=== PATIENT | male | born 1960 | race Caucasian/White ===

== ENCOUNTER 2019-09-08 07:17 | Outpatient (CLI) | payer OTHER, SELFPAY ==
--- NOTE | ~2019-09-08 | US_ITS ---
EXAMINATION: US right upper quadrant DATE: 09/08/2019 07:48 INDICATION: Right upper quadrant pain TECHNIQUE: Multiple grayscale and Doppler ultrasound images of the abdomen were obtained. COMPARISON: None available FINDINGS: The head and and body of the pancreas are normal. The pancreatic tail is obscured by bowel gas. The liver is normal with normal echogenicity and echotexture. No surface nodularity. Normal hepa topetal flow in the main portal vein. The gallbladder is normal with no abnormal wall thickening, per icholecystic fluid or stones. The normal common bile duct measures 4 mm. There was no sonographic Mur phy sign. IMPRESSION: 1. Normal sonographic study of the gallbladder. Reviewed, dictated and finalized at location B.
== END 2019-09-08 07:18 | disposition home or self-care (01) ==
LOC: ANHIMG 07:21
PROVIDERS: PCP Internal Medicine; Visit Provider Nurse Practitioner
DX: R10.11 Right upper quadrant pain (principal)
CPT/HCPCS: 76705

== ENCOUNTER 2021-10-18 09:08 | Outpatient (CLI) | payer OTHER, SELFPAY ==
--- NOTE | ~2021-10-18 | CT_ITS ---
EXAMINATION: CT lung screening DATE: 10/18/2021 09:26 INDICATION: Personal history of nicotine dependence, prior smoker with 35 pack year history TECHNIQUE: Computed tomography (CT) of the chest was performed without intravenous contrast. The dose -length product (DLP) was 163.55 mGy-cm. 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 COMPARISON: None FINDINGS: There is mild emphysema. There is a 4 mm nodule of the right upper lobe on image 43. The marco ngs are free of acute opacities. There is no pleural effusion or pneumothorax. There is a 6 mm ground glass nodule of the right upper lobe on image 56. No pathologically enlarged thoracic lymph nodes are identified. The heart size is normal. Calcified coronary artery atherosclerosis is noted. There is m oderate thoracic spondylosis. IMPRESSION: 1. Lung-RADS category 2: Benign appearance or behavior. Continue annual screening with noncontrast lo w-dose chest CT in 12 months. Reviewed, dictated and finalized at location B. IMPRESSION: 1. Lung-RADS category 2: Benign appearance or behavior. Continue annual screeni ng with noncontrast low-dose chest CT in 12 months.
== END 2021-10-18 09:09 | disposition home or self-care (01) ==
LOC: ANHIMG 09:12
PROVIDERS: PCP Internal Medicine; Visit Provider Nurse Practitioner
DX: Z12.2 Encounter for screening for malignant neoplasm of respiratory organs (principal); Z87.891 Personal history of nicotine dependence
CPT/HCPCS: 71271

== ENCOUNTER 2021-10-25 01:29 | Day surgery (SDC) | payer OTHER, SELFPAY ==
[2021-10-16 16:10] VITALS: BMI 32.2
[2021-10-25 11:13] VITALS: BP 131/87; PULSE 90; RESP 20; TEMP 36.1; O2SAT 98
[2021-10-25] MEDS: LACTATED RINGERS 1,000 ML 150 ML IV CONT (11:17)
--- NOTE | 2021-10-25 11:40 | WPDANESEPPF ---
Anes - Initial Pre Proc Eval Procedure: Operation Date: 10/25/21 12:30 Proposed Procedures p Screening Colonoscopy - Gordy Barbour MD Date/Time: 10/25/21 11:40 Surgeon: Gordy Barbour MD Pre Op Diagnosis: neoplasm screening Patient Data Age: 61 Gender: M Height: 1.75 m Weight: 96.6 kg Last Vital Signs Temp 97 F L 10/25/21 11:13 Pulse 90 10/25/21 11:13 Resp 20 10/25/21 11:13 BP 131/87 10/25/21 11:13 Pulse Ox 98 10/25/21 11:13 Allergies Allergy/AdvReac Type Severity Reaction Status Date / Time levofloxacin [From Levaquin] Allergy Severe Muscle Verified 10/25/21 11:11 detachment Dog Dander Allergy Intermediate SINUS Uncoded 10/25/21 11:11 Home Medications Medication Instructions Recorded Confirmed Type cetirizine 10 mg capsule 10 mg PO DAILY 10/13/19 10/16/21 History fluticasone propionate 50 1 spray NASAL DAILY 10/13/19 10/16/21 History mcg/actuation nasal spray,suspension testosterone cypionate 200 mg/mL 200 mg IM WEEKLY #13 ml 01/19/21 10/16/21 Rx intramuscular oil albuterol sulfate 90 mcg/actuation 2 puff INHALATION Q4-6H PRN #8.5 gm 04/25/21 10/16/21 Rx aerosol inhaler bupropion HCl 100 mg tablet,12 hr 100 mg PO DAILY #30 tablet 05/22/21 10/16/21 Rx sustained-release azelastine 1 spray NASAL DAILY 10/16/21 10/16/21 History Patient hx anesthesia problems: none Family hx anesthesia problems: none Results Review: All pre-operative results and documents have been reviewed as part of the pre-operative evaluation. [facility] Past Medical History Medical History (Updated 10/05/21 @ 08:48 by Dorothy Flannery NP) Hypercholesteremia Hypogonadism in male Long-term current use of testosterone replacement therapy Neuropathy Surgical History Surgical History History of surgery on arm Left bicep reattachment 2012 Family History Family History Sibling Patient's sister is in good health Father Acute myocardial infarction Sibling No problems noted. Social History Social History Smoking packs per day: 1 Smoking cigarettes per day: 20.0 Years smoked: 40 Smoking pack-years: 40.00 Smoking status: Former smoker Tobacco type: cigarettes Smoking end date: 06/16/00 Alcohol intake: current Alcohol use details: once a month Substance use: never Substance use type: does not use Living arrangements: with family Spiritual care concerns: No Anes - Eval Final PreProcedure Day of Procedure 10/25/21 11:40 Patient weight: obese Heart: regular rate and rhythm Lungs: clear to auscultation Airway: Mallampati scale class II Neurological: alert and oriented Last oral intake: >/= 8 hours ASA classification: II Emergent: no Anesthetic plan: proceed Anesthesia type and monitoring: general GIVS and standard monitoring Results Review: All pre-operative results and documents have been reviewed as part of the pre-operative evaluation. Informed Consent: The patient's anesthetic plan and its attendant risks and benefits were discussed with the patient/family/POA. Questions were solicited and answers provided to the satisfaction of the patient/family/POA.
--- NOTE | 2021-10-25 11:42 | WPDGICN ---
Assessment and Plan Assessment and plan (1) Screening for colon cancer: Code(s): Z12.11 - Encounter for screening for malignant neoplasm of colon Status: Acute Assessment and Plan: Colonoscopy with possible biopsy or polypectomy or cautery or injection of substances. GI Consult Note Consult date/time: 10/25/21 11:42 HPI: Yohan Dunaway is a 61 year old male Who has due for colon cancer screening. He had a colonoscopy about 10 years ago. He has a history of colon polyps. Review of Systems Review of Systems: All systems reviewed & are unremarkable except as noted in HPI and below PMFSH Past Medical History Medical History Hypercholesteremia Hypogonadism in male Long-term current use of testosterone replacement therapy Neuropathy Surgical History Surgical History History of surgery on arm Left bicep reattachment 2012 Family History Family History Sibling Patient's sister is in good health Father Acute myocardial infarction Sibling No problems noted. Social History Social History Smoking packs per day: 1 Smoking cigarettes per day: 20.0 Years smoked: 40 Smoking pack-years: 40.00 Smoking status: Former smoker Tobacco type: cigarettes Smoking end date: 06/16/00 Alcohol intake: current Alcohol use details: once a month Substance use: never Substance use type: does not use Living arrangements: with family Spiritual care concerns: No Meds Home Medications and Allergies Home Medications Medication Instructions Recorded Confirmed Type cetirizine 10 mg capsule 10 mg PO DAILY 10/13/19 10/16/21 History fluticasone propionate 50 1 spray NASAL DAILY 10/13/19 10/16/21 History mcg/actuation nasal spray,suspension testosterone cypionate 200 mg/mL 200 mg IM WEEKLY #13 ml 01/19/21 10/16/21 Rx intramuscular oil albuterol sulfate 90 mcg/actuation 2 puff INHALATION Q4-6H PRN #8.5 gm 04/25/21 10/16/21 Rx aerosol inhaler bupropion HCl 100 mg tablet,12 hr 100 mg PO DAILY #30 tablet 05/22/21 10/16/21 Rx sustained-release azelastine 1 spray NASAL DAILY 10/16/21 10/16/21 History Allergies Allergy/AdvReac Type Severity Reaction Status Date / Time levofloxacin [From Levaquin] Allergy Severe Muscle Verified 10/25/21 11:11 detachment Dog Dander Allergy Intermediate SINUS Uncoded 10/25/21 11:11 Vital Signs Vital Signs - 24 hr 10/25/21 11:13 Temperature 36.1 C L Pulse Rate 90 Respiratory Rate 20 Blood Pressure 131/87 Pulse Oximetry 98 Exam Const: General: alert Orientation/consciousness: patient oriented x3 Resp: Auscultation: clear to auscultation bilaterally Cardio: Rhythm: regular rhythm GI: GI Palp: Yes Soft to palpation and No Tenderness to palpation present (GI) Neuro: General: patient oriented x3
[2021-10-25 12:38] VITALS: BP 113/65; PULSE 70; RESP 20; O2SAT 94
[2021-10-25 12:48] VITALS: BP 119/75; PULSE 69; RESP 20; O2SAT 99
== END 2021-10-25 13:05 | disposition home or self-care (01) ==
PROVIDERS: PCP Internal Medicine; Visit Provider Internal Medicine Gastroenterology
PROC: 0DJD8ZZ Inspection of Lower Intestinal Tract, Via Natural or Artificial Opening Endoscopic (ICD-10-PCS; CPT 45378; principal; 2021-10-25 12:30)
DX: Z12.11 Encounter for screening for malignant neoplasm of colon (principal); K63.5 Polyp of colon; K57.30 Diverticulosis of large intestine without perforation or abscess without bleeding; E78.00 Pure hypercholesterolemia, unspecified; G62.9 Polyneuropathy, unspecified; Z79.890 Hormone replacement therapy; Z87.891 Personal history of nicotine dependence; Z79.51 Long term (current) use of inhaled steroids; E66.9 Obesity, unspecified; Z68.31 Body mass index [BMI] 31.0-31.9, adult
CPT/HCPCS: 45380; 88305; J2704; J7120

== ENCOUNTER 2022-06-05 16:36 | Outpatient (CLI) | payer OTHER, SELFPAY ==
--- NOTE | ~2022-06-05 | XR_ITS ---
Clinical Indication: Cough PA and lateral views of the chest: Comparison: 07/21/2015 Findings: The lungs are clear, without evidence of focal consolidation or pleural effusion. Cardiome diastinal silhouette is within normal limits. Bones and soft tissues are unremarkable. Impression: Normal chest. Reviewed, dictated and finalized at [facility]. NCER SCALE Impression: Normal chest.
== END 2022-06-05 16:37 | disposition home or self-care (01) ==
LOC: ANHIMG 16:38
PROVIDERS: PCP Internal Medicine; Visit Provider Nurse Practitioner
DX: R05.9 Cough, unspecified (principal)
CPT/HCPCS: 71046

== ENCOUNTER 2022-06-13 12:03 | Observation (INO) | payer OTHER, SELFPAY ==
[2022-06-13] VITALS (9 sets, daily range): BP systolic 134–140; BP diastolic 70–75; PULSE 73–103; RESP 15–30; TEMP 37.5; O2SAT 93–97
--- NOTE | ~2022-06-13 | XR_ITS ---
EXAMINATION: XR chest 2V DATE: 06/13/2022 13:49 INDICATION: Cough and congestion TECHNIQUE: PA and lateral views of the chest are obtained. COMPARISON: 06/05/2022 FINDINGS: There are minimal airspace opacities of the lung bases, left greater than right. No pleural effusion or pneumothorax. The cardiomediastinal silhouette is normal. There is moderate thoracic spo ndylosis. IMPRESSION: 1. Minimal bibasilar airspace opacities, consistent with atelectasis versus pneumonia. Reviewed, dictated and finalized at location L. NCE ENGINEER IMPRESSION: 1. Minimal bibasilar airspace opacities, consistent with atelectasis versus pne umonia.
--- NOTE | ~2022-06-13 | CT_ITS ---
EXAMINATION: CTA chest PE protocol DATE: 06/13/2022 16:49 INDICATION: Cough and congestion. TECHNIQUE: Computed tomography angiography (CTA) of the chest was performed with 100 mL Omnipaque-350 intravenous contrast timed to evaluate the pulmonary arteries. Coronal maximum intensity projection 3D-reconstructions were created by the technologist. Automated exposure control and iterative reconst ruction technique were employed. The dose-length product was 413.37 mGy-cm. COMPARISON: Chest CT 10/18/2021 FINDINGS: There are patchy airspace and groundglass opacities in the lower lobes. There are mild grou ndglass opacities in right middle lobe and right upper lobe. No pleural effusion. The heart size is n ormal. There is a trace pericardial effusion. There is mild bilateral hilar lymphadenopathy. There is no pulmonary embolus. There is mild thoracic spondylosis. There is mild chronic anterior wedging of multiple vertebral bodies. IMPRESSION: 1. No pulmonary embolus. Sensitivity and specificity are moderately decreased by motion artifact. 2. Bilateral pneumonia, worst in the lower lobes. Reviewed, dictated and finalized at location A. ASST IMPRESSION: 1. No pulmonary embolus. Sensitivity and specificity are moderately decreased b y motion artifact. 2. Bilateral pneumonia, worst in the lower lobes.
--- NOTE | 2022-06-13 13:16 | ECG_ITS ---
Measurements Intervals [place] Rate: 82 P: 61 NE: 185 QRS: 45 QRSD: 93 T: 4 QT: 325 QTc: 380 Interpretive Statements SINUS RHYTHM NONSPECIFIC T-WAVE ABNORMALITY NO PREVIOUS ECG AVAILABLE FOR COMPARISON Electronically Signed On 06-13-2022 15:05:13 LOAN SERVICING SPECIALIST by Toni Oquendo M.D.
[2022-06-13 14:25] LABS: Basophils Absolute Auto 0.1 K/mm3 (0.0-0.1); Basophils Percent Auto 0.3 % (0.2-1.2); Eosinophils Percent Auto 0.1 % (0-4.4); Hematocrit 43.8 % (42.0-52.0); Hemoglobin 14.5 g/dL (14.0-18.0); Immature Granulocyte Absolute 0.11 K/mm3 (0.00-0.031); Immature Granulocyte Percent A 0.7 % (0-0.5); Lymphocytes Absolute Auto 1.33 K/mm3 (0.9-3.2); Lymphocytes Percent Auto 8.3 % (18.3-44.2); Mean Corpuscular HGB Conc 33.1 g/dl (32-36); Mean Corpuscular Hemoglobin 32.2 pg (26-34); Mean Corpuscular Volume 97.3 fl (80-100); Mean Platelet Volume 10.8 fl (7.4-10.4); Monocytes Absolute Auto 1.1 K/mm3 (0.1-0.6); Monocytes Percent Auto 6.6 % (2.6-8.5); Neutrophils Absolute Auto 13.5 K/mm3 (1.3-6.7); Platelet Count Result 257 k/mm3 (150-375); Red Cell Distribution Width 14.2 % (11.5-14.5); White Blood Count 16.1 K/mm3 (4.5-10.0)
[2022-06-13 14:32] LABS: Alanine Aminotransferase 29 U/L (6-50); Albumin Level 3.7 g/dL (3.5-5.1); Alkaline Phosphatase 69 U/L (38-126); Anion Gap 6 mmol/L (8-16); Aspartate Amino Transferase 24 U/L (17-59); Bilirubin,Total 1.2 mg/dL (0.2-1.3); Blood Urea Nitrogen 9 mg/dL (9-20); Calcium 8.4 mg/dL (8.4-10.2); Carbon Dioxide 28 mmol/L (22-30); Chloride 102 mmol/L (98-107); Estimated CRCL calculation 58 ml/min; Estimated Glomerular Filt Rate > 60; Glucose 107 mg/dL (65-110); Potassium 3.9 mmol/L (3.4-5.0); Sodium 136 mmol/L (137-145)
[2022-06-13 14:57] LABS: Influenza A QL RT-PCR Positive (Negative); Influenza B QL RT-PCR Negative (Negative); SARS-CoV-2 RNA PCR Negative
--- NOTE | 2022-06-13 17:05 | ED.GENADULT ---
HPI - General Adult General Chief complaint: Upper Respiratory Infection Stated complaint: URI Time Seen by Provider: 06/13/22 15:32 Source: RN notes reviewed History of Present Illness HPI narrative: Patient presents emergency department from home for upper respiratory infection. Patient states he has not been feeling well for the past 1 month. He states that he gone to see Dr. Christianson approximately 1 week ago and was diagnosed with influenza but states he is can seem to have a cough is productive yellow sputum as well as feeling generally achy he denies any measured fevers or chills or chest pain he denies any abdominal pain nausea or vomiting. She states that he had also had influenza previously earlier this year Related Data Home Medications Medication Instructions Recorded Confirmed cetirizine 10 mg capsule 10 mg PO DAILY 10/13/19 06/05/22 fluticasone propionate 50 1 spray intranasal DAILY 10/13/19 06/05/22 mcg/actuation nasal spray,suspension azelastine 137 mcg (0.1 %) nasal 1 spray intranasal DAILY 10/16/21 06/05/22 spray aerosol Allergies Allergy/AdvReac Type Severity Reaction Status Date / Time levofloxacin [From Levaquin] Allergy Severe Muscle Verified 06/13/22 15:31 detachment Dog Dander Allergy Intermediate SINUS Uncoded 06/13/22 15:31 Review of Systems Review of Systems: Gen.: Denies fevers or chills ENT: Denies congestion Respiratory: See HPI CV: Denies chest pain or palpitations GI: Denies abdominal pain nausea, emesis or diarrhea Musculoskeletal: Denies back pain or muscle pain Neuro: Denies numbness, tingling, weakness or focal weakness Skin: Denies rash Except as documented, all other systems reviewed and negative [facility] Past Medical History Medical History Hypercholesteremia Hypogonadism in male Long-term current use of testosterone replacement therapy Neuropathy Surgical History Surgical History History of surgery on arm Left bicep reattachment 2012 Family History Family History Sibling Patient's sister is in good health Father Acute myocardial infarction Sibling No problems noted. Mother Pancreatic cancer metastasized to intra-abdominal lymph node Social History Social History Smoking packs per day: 1 Smoking cigarettes per day: 20.0 Years smoked: 40 Smoking pack-years: 40.00 Smoking status: Former smoker Tobacco type: cigarettes Smoking end date: 06/16/00 Alcohol intake: current Alcohol use details: once a month Substance use: never Substance use type: does not use Spiritual care concerns: No Exam Narrative: APPEARANCE: No acute distress, nontoxic, resting in bed EYES: EOMI HEENT: Normocephalic, atraumatic, OMM RESPIRATORY: No respiratory distress coarse breath sounds in bilateral lung bases no wheezing CARDIOVASCULAR: Regular rate and rhythm without murmurs rubs or gallops. ABDOMINAL: Soft, nontender, nondistended, no rebound or guarding MUSCULOSKELETAl: Moves all extremities. No clubbing, cyanosis or edema. NEURO: Awake and alert. Following commands, speech normal, no focal deficits SKIN:: Warm, dry. No rashes lesions or abrasions PSYCHIATRIC: Normal affect/mood, Course Course Emergency Course: Discussed with KELI Mari for Dr. Horne presentation work-up agrees with admission Discussed with patient and family results of workup and diagnosis. Discussed need for admission. Patient and family understand and agree to current treatment plan Vital Signs Vital signs: Vital Signs Pulse Oximetry 93 06/13/22 12:06 Temperature 99.5 F 06/13/22 13:07 Pulse Rate 98 06/13/22 13:07 Respiratory Rate 16 06/13/22 13:07 Blood Pressure 140/73 06/13/22 13:07 Pulse Oxim
[2022-06-13] MEDS: SODIUM CHLORIDE 0.9% IV 1,000 ML 999 ML IV CONT (17:40)
[2022-06-13 17:51] LABS: Lactic Acid Reflex 0.9 mmol/L (0.7-2.0)
--- NOTE | 2022-06-13 20:55 | PM.IMHP ---
H&P: HPI History of Present Illness Date/Time: 06/13/22 20:55 Chief Complaint: Upper respiratory infection Narrative: This is a 61-year-old male patient who has been feeling ill for the last month. He came to the emergency room to be evaluated for his upper respiratory infection. The patient stated that he took several influenza test and was just diagnosed with influenza a 1 week ago. The patient stated he continues to cough productive yellow sputum and is still having body aches. He has had some fatigue as well. No nausea vomiting or diarrhea. Chest x-ray was read as minimal bibasilar airspace opacities consistent with atelectasis versus pneumonia. CTA was read as no pulmonary embolus. Sensitivity and specificity are moderately decreased by motion artifact. Bilateral pneumonia worse in the lower lobes. The patient was started on azithromycin Rocephin. He was also given a nebulizer treatment. He was also started on IV fluids. The patient stated that he has had a poor oral intake. He has mild leukocytosis of 16.1. Lactic was normal. Patient still continues to be positive for influenza A. The patient is being admitted for observation status on the date of service of 06/13/2020 Review of Systems Review of Systems: See HPI All systems reviewed & are unremarkable except as noted in HPI and below Constitutional: Constitutional: Reports as per HPI and Reports no additional constitutional complaints Eyes: Eyes: Reports as per HPI and Reports no additional eye complaints ENT: Reports system reviewed and no additional complaints, except as documented and Reports Normal hearing present Cardiovascular: Cardiovascular: Reports no additional cardiovascular complaints Respiratory: Respiratory: Reports no additional respiratory complaints and Reports no additional respiratory complaints Gastrointestinal: Gastrointestinal: Reports as per HPI and Reports no additional gastrointestinal complaints Musculoskeletal: Musculoskeletal: Reports no additional musculoskeletal complaints Integumentary/Breasts: Skin/Breast: Reports system reviewed and no additional complaints, except as docu and Reports as per HPI Neurologic: Reports system reviewed and no additional complaints, except as documented, Reports as per HPI and Reports Normal hearing present Psychiatric: Psychiatric: Reports no additional psychiatric complaints and Reports as per HPI Endocrine: Endocrine: Reports no additional endocrine complaints Hematologic/Lymphatic: Hematologic/Lymphatic: Reports no additional hematologic/lymphatic complaints Allergic/Immunologic: Allergic/Immunologic: Reports no additional allergic/immunologic complaints PMFSH Past Medical History Medical History Anxiety Hypercholesteremia Hypogonadism in male Long-term current use of testosterone replacement therapy Neuropathy Surgical History Surgical History (Updated 06/13/22 @ 21:01 by Jacey Stafford NP) H/O esophagogastroduodenoscopy History of surgery on arm Left bicep reattachment 2012 History of tonsillectomy S/P colonoscopic polypectomy Family History Family History Sibling Patient's sister is in good health Father Acute myocardial infarction Sibling No problems noted. Mother Pancreatic cancer metastasized to intra-abdominal lymph node Social History Social History (Updated 06/13/22 @ 23:35 by Jacey Stafford NP) Social History: The patient lives with his and they have 3 children. 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 Patient is a former smoker. He does not use any marijuana or illicit drugs. The patient's is his durable power managing attorney for healthcare. Code status full code Smoking packs per day: 1 Smoking cigarettes per day: 20.0 Years smoked: 40 Smoking pack-years: 40.00 Smoking status: Former smoker To
[2022-06-13] MEDS: guaiFENesin/DEXTROMETHORPHAN 10 ML UDC PO (22:51)
[2022-06-13] MEDS: ACETAMINOPHEN 325 MG TABLET 650 MG PO (22:51)
[2022-06-14] VITALS (14 sets, daily range): BP systolic 111–134; BP diastolic 54–72; PULSE 71–89; RESP 14–20; TEMP 36.1–37.2; O2SAT 92–98; BMI 31.3
[2022-06-14] MEDS: OSELTAMIVIR PHOSPHATE 30 MG CAPSULE PO ×3 (00:48→21:25)
--- NOTE | 2022-06-14 01:19 | ADMGEN ---
This patient, Yohan Dunaway, was admitted to 3 [facility] Surg Room 326-01. Patient/family oriented to hospital policies and general routines including ID bracelet, bed and alarms, visiting hours, pain management, procedures, bathroom and other care routines, personal items, smoking policy, room service/diet, and visiting hours. Information on how to activate the Rapid Response Team has been discussed. Patient/Family are encouraged to report perceived risks to care and to ask questions if they do not understand what they are told or what they should do.
[2022-06-14] MEDS: ALBUTEROL SULFATE NEB 2.5 MG/3 ML INH INHALATION ×4 (01:48→21:46)
[2022-06-14] MEDS: IPRATROPIUM BR 0.02% INH SOLN 0.5 MG/2.5 ML VIAL INHALATION ×4 (01:48→21:46)
[2022-06-14 06:30] LABS: Basophils Percent Auto 0.2 % (0.2-1.2); Eosinophils Absolute Auto 0.1 K/mm3 (0-0.3); Eosinophils Percent Auto 0.7 % (0-4.4); Hematocrit 38.2 % (42.0-52.0); Hemoglobin 12.7 g/dL (14.0-18.0); Immature Granulocyte Absolute 0.07 K/mm3 (0.00-0.031); Immature Granulocyte Percent A 0.6 % (0-0.5); Lymphocytes Absolute Auto 1.47 K/mm3 (0.9-3.2); Lymphocytes Percent Auto 12.8 % (18.3-44.2); Mean Corpuscular HGB Conc 33.2 g/dl (32-36); Mean Corpuscular Hemoglobin 31.7 pg (26-34); Mean Corpuscular Volume 95.3 fl (80-100); Mean Platelet Volume 10.9 fl (7.4-10.4); Monocytes Absolute Auto 0.8 K/mm3 (0.1-0.6); Monocytes Percent Auto 7.3 % (2.6-8.5); Neutrophils Percent Auto 78.4 % (45.5-73.1); Platelet Count Result 227 k/mm3 (150-375); Red Blood Count 4.01 M/mm3 (4.6-6.20); Red Cell Distribution Width 13.8 % (11.5-14.5); White Blood Count 11.5 K/mm3 (4.5-10.0)
[2022-06-14 06:48] LABS: Alanine Aminotransferase 22 U/L (6-50); Albumin Level 3.1 g/dL (3.5-5.1); Alkaline Phosphatase 48 U/L (38-126); Anion Gap 5 mmol/L (8-16); Aspartate Amino Transferase 18 U/L (17-59); Blood Urea Nitrogen 8 mg/dL (9-20); Calcium 7.9 mg/dL (8.4-10.2); Carbon Dioxide 24 mmol/L (22-30); Chloride 104 mmol/L (98-107); Estimated CRCL calculation 78 ml/min; Estimated Glomerular Filt Rate > 60; Glucose 103 mg/dL (65-110); Potassium 3.3 mmol/L (3.4-5.0); Sodium 133 mmol/L (137-145)
[2022-06-14] MEDS: ENOXAPARIN 40 MG/0.4 ML SYRINGE SUB-Q (08:33)
[2022-06-14] MEDS: FLUTICASONE PROPIONATE 0.05% NA SPR 16 GM BTL (*BKC) 1 SPRAY NASAL (08:33)
[2022-06-14] MEDS: ACETAMINOPHEN 325 MG TABLET 650 MG PO ×2 (08:39→21:15)
--- NOTE | 2022-06-14 13:42 | PM.IMPN ---
Progress Note: A&P Assessment and Plan (1) Community acquired pneumonia: Code(s): J18.9 - Pneumonia, unspecified organism Status: Acute Assessment and Plan: -the patient was started on azithromycin Rocephin. Tailor antibiotics to cultures. -continue with nebulizer treatments The patient has mild leukocytosis with white count being 16.1. Lactic was normal. (2) Influenza A: Code(s): J10.1 - Influenza due to other identified influenza virus with other respiratory manifestations Status: Acute Assessment and Plan: -the patient stated that he has been ill for a month. However he just recently was diagnosed with influenza A. -the patient tested positive for influenza today so I did start him on Tamiflu. Pharmacy to renal dose. -continue with nebulizer treatments. (3) Anxiety: Code(s): F41.9 - Anxiety disorder, unspecified Status: Acute Assessment and Plan: -continue with bupropion when it his medication reconciliation has been completed. Subjective Date/time seen: 06/14/22 13:42 No complaints Exam Const: General: cooperative, comfortable, no acute distress, well developed, alert, awake, Physically active, ill appearing, average body habitus and well nourished Nutritional Appearance: average body habitus and well nourished Orientation/consciousness: oriented to person, oriented to place, oriented to time and patient oriented x3 Limitations: no limitations HENMT: Head: normal to inspection, No palpable skull fracture present, normocephalic and atraumatic Ears: hearing grossly normal bilaterally and external ears normal Face/Nose/Sinus: Normal external nose present and Normal nares present Eyes: General: appearance normal, both eyes and all related structures Alignment and Position: alignment normal Periorbital: periorbital findings normal Eyelids: eyelids normal Sclera: sclerae normal Pupils: Equal, round and reactive pupils present EOM: EOMs intact bilaterally Neck: Neck: normal visual inspection, full ROM, no lymphadenopathy, trachea midline and supple Chest: Chest palpation & inspection: normal inspection of the chest Resp: Effort & Inspection: normal respiratory effort Auscultation: clear to auscultation bilaterally Cardio: Palpation: normal PMI Rate: regular rate Rhythm: regular rhythm Heart sounds: S1 normal heart sound present and S2 normal heart sound present Peripheral pulses: Peripheral pulses 2+ throughout GI: Inspection: normal to inspection Auscultation: normal bowel sounds Rectal Exam: deferred Back/Spine/Pelvis: Cervical Spine: cervical ROM normal Skin: General skin exam: normal color Lesions: no lesions Rashes: no rashes Trauma: no lacerations or abrasions Wounds: no wounds Hair: male pattern alopecia Nails: normal Neuro: General: oriented to person, oriented to place, oriented to time and patient oriented x3 Cranial nerves: Yes Equal, round and reactive pupils present and Yes Normal hearing present Cognition (Neuro): normal cognition Speech: normal speech Gait exam (Neuro): Normal gait present Motor exam (neuro): 5/5 motor strength present throughout Sensory Exam: normal sensation Extrem: General: normal to inspection Right upper extremity: normal to inspection and shoulder/upper arm Left upper extremity: normal to inspection and shoulder/upper arm Right lower extremity: normal to inspection Left lower extremity: normal to inspection Psych: Appearance: grossly normal Mental Status: mental status grossly normal Speech and movement: Normal speech and movement present Affect: normal affect Attitude: cooperative Thought process: Normal thought process present Insight: Good insight present (Psych) Judgement: Good judgement present (Psych) Objective Data Vital Signs Vital Signs: Vital Signs - 24 hr 06/13/22 15:35 06/13/22 18:43 06/13/22 15:35 Temperature Pulse Rate 103 H 86 Respiratory Rate 17 22 H Blood Pressure
[2022-06-15 05:48] VITALS: BP 100/46; PULSE 79; RESP 13; TEMP 36.5; O2SAT 95
[2022-06-15] MEDS: IPRATROPIUM BR 0.02% INH SOLN 0.5 MG/2.5 ML VIAL INHALATION (09:45)
[2022-06-15 10:00] VITALS: PULSE 93; RESP 16
[2022-06-15] MEDS: FLUTICASONE PROPIONATE 0.05% NA SPR 16 GM BTL (*BKC) 1 SPRAY NASAL (10:28)
[2022-06-15] MEDS: OSELTAMIVIR PHOSPHATE 30 MG CAPSULE PO (10:28)
[2022-06-15] MEDS: ENOXAPARIN 40 MG/0.4 ML SYRINGE SUB-Q (10:28)
[2022-06-15 11:10] VITALS: PULSE 80; O2SAT 93
[2022-06-15 11:11] VITALS: PULSE 97; RESP 16
--- NOTE | 2022-06-15 12:54 | PM.DS ---
DS: Admitting Diagnosis Discharge Date June 15, 2022 Admitting Diagnosis Pneumonia and flu DS: Discharge Diagnosis Discharge Diagnosis (1) Community acquired pneumonia: Code(s): J18.9 - Pneumonia, unspecified organism Status: Acute Assessment and Plan: -the patient was started on azithromycin Rocephin. Tailor antibiotics to cultures. -continue with nebulizer treatments The patient has mild leukocytosis with white count being 16.1. Lactic was normal. (2) Influenza A: Code(s): J10.1 - Influenza due to other identified influenza virus with other respiratory manifestations Status: Acute Assessment and Plan: -the patient stated that he has been ill for a month. However he just recently was diagnosed with influenza A. -the patient tested positive for influenza today so I did start him on Tamiflu. Pharmacy to renal dose. -continue with nebulizer treatments. (3) Anxiety: Code(s): F41.9 - Anxiety disorder, unspecified Status: Acute Assessment and Plan: -continue with bupropion when it his medication reconciliation has been completed. DS: Summary Hospital Course Hospital Course: Patient was admitted for pneumonia and flu. Start on antibiotics and also started on Tamiflu. Did well. Over required any oxygen. He is weak but otherwise feels okay and feels better. He wants to go home. Patient will be discharged on antibiotics and Tamiflu. Time Spent with Patient Time attestation: Total time spent providing and/or coordinating discharge services: Exam Const: General: cooperative, comfortable, no acute distress, well developed, alert, awake, Physically active, ill appearing, average body habitus and well nourished Nutritional Appearance: average body habitus and well nourished Orientation/consciousness: oriented to person, oriented to place, oriented to time and patient oriented x3 Limitations: no limitations HENMT: Head: normal to inspection, No palpable skull fracture present, normocephalic and atraumatic Ears: hearing grossly normal bilaterally and external ears normal Face/Nose/Sinus: Normal external nose present and Normal nares present Eyes: General: appearance normal, both eyes and all related structures Alignment and Position: alignment normal Periorbital: periorbital findings normal Eyelids: eyelids normal Sclera: sclerae normal Pupils: Equal, round and reactive pupils present EOM: EOMs intact bilaterally Neck: Neck: normal visual inspection, full ROM, no lymphadenopathy, trachea midline and supple Chest: Chest palpation & inspection: normal inspection of the chest Resp: Effort & Inspection: normal respiratory effort Auscultation: clear to auscultation bilaterally Cardio: Palpation: normal PMI Rate: regular rate Rhythm: regular rhythm Heart sounds: S1 normal heart sound present and S2 normal heart sound present Peripheral pulses: Peripheral pulses 2+ throughout GI: Inspection: normal to inspection Auscultation: normal bowel sounds Rectal Exam: deferred Back/Spine/Pelvis: Cervical Spine: cervical ROM normal Skin: General skin exam: normal color Lesions: no lesions Rashes: no rashes Trauma: no lacerations or abrasions Wounds: no wounds Hair: male pattern alopecia Nails: normal Neuro: General: oriented to person, oriented to place, oriented to time and patient oriented x3 Cranial nerves: Yes Equal, round and reactive pupils present and Yes Normal hearing present Cognition (Neuro): normal cognition Speech: normal speech Gait exam (Neuro): Normal gait present Motor exam (neuro): 5/5 motor strength present throughout Sensory Exam: normal sensation Extrem: General: normal to inspection Right upper extremity: normal to inspection and shoulder/upper arm Left upper extremity: normal to inspection and shoulder/upper arm Right lower extremity: normal to inspection Left lower extremity: normal to inspection Psych: Appearance: grossly normal Men
== END 2022-06-15 13:45 | disposition home or self-care (01) ==
LOC: ANHED 17:08 → ANH3MEDSUR 23:10
PROVIDERS: Admitting Provider Internal Medicine; Emergency Provider Emergency Medicine; PCP Internal Medicine; Visit Provider Chiropractor
DX: J18.9 Pneumonia, unspecified organism (principal); J10.1 Influenza due to other identified influenza virus with other respiratory manifestations; G62.9 Polyneuropathy, unspecified; D72.829 Elevated white blood cell count, unspecified; F41.9 Anxiety disorder, unspecified; E29.1 Testicular hypofunction; R94.31 Abnormal electrocardiogram [ECG] [EKG]; Z20.822 Contact with and (suspected) exposure to COVID-19; Z79.890 Hormone replacement therapy; Z87.891 Personal history of nicotine dependence; F10.90 Alcohol use, unspecified, uncomplicated; Z79.51 Long term (current) use of inhaled steroids; Z79.899 Other long term (current) drug therapy
CPT/HCPCS: 36415; 71046; 71275; 80053; 83605; 85025; 87040; 87070; 87205; 87636; 93005; 94640; 96365; 96367; 96368; 96372; 99285; A9270; G0378; J0456; J0696; J1650; J7030; Q9967

== ENCOUNTER 2022-11-25 09:06 | Outpatient (CLI) | payer OTHER, SELFPAY ==
--- NOTE | ~2022-11-25 | XR_ITS ---
EXAMINATION: XR chest 2V DATE: 11/25/2022 09:25 INDICATION: Cough, follow-up pneumonia TECHNIQUE: PA and lateral views of the chest are obtained. COMPARISON: 06/13/2022 FINDINGS: The lungs are free of acute opacities. No pleural effusion or pneumothorax. The cardiomedia stinal silhouette is normal. There is moderate thoracic spondylosis. IMPRESSION: 1. No acute cardiopulmonary abnormality. Reviewed, dictated and finalized at location A.
== END 2022-11-25 09:07 | disposition home or self-care (01) ==
LOC: ANHIMG 09:10
PROVIDERS: PCP Internal Medicine; Visit Provider Internal Medicine
DX: R05.9 Cough, unspecified (principal); J18.9 Pneumonia, unspecified organism
CPT/HCPCS: 71046

== ENCOUNTER 2023-02-24 08:14 | Outpatient (CLI) | payer OTHER, SELFPAY ==
[2023-02-24 19:21] LABS: Alanine Aminotransferase 39 U/L (6-50); Albumin Level 4.2 g/dL (3.5-5.1); Alkaline Phosphatase 75 U/L (38-126); Anion Gap 7 mmol/L (8-16); Aspartate Amino Transferase 52 U/L (17-59); Bilirubin,Total 0.5 mg/dL (0.2-1.3); Blood Urea Nitrogen 16 mg/dL (9-20); Calcium 9.2 mg/dL (8.4-10.2); Carbon Dioxide 30 mmol/L (22-30); Chloride 103 mmol/L (98-107); Estimated Glomerular Filt Rate 56; Glucose 77 mg/dL (65-110); Potassium 5.1 mmol/L (3.4-5.0); Sodium 140 mmol/L (137-145)
[2023-02-24 19:43] LABS: Basophils Absolute Auto 0.1 K/mm3 (0.0-0.1); Basophils Percent Auto 1.4 % (0.2-1.2); Eosinophils Absolute Auto 0.4 K/mm3 (0-0.3); Eosinophils Percent Auto 4.1 % (0-4.4); Hematocrit 52.4 % (42.0-52.0); Hemoglobin 17.3 g/dL (14.0-18.0); Immature Granulocyte Absolute 0.08 K/mm3 (0.00-0.031); Immature Granulocyte Percent A 0.9 % (0-0.5); Lymphocytes Percent Auto 33.1 % (18.3-44.2); Mean Corpuscular Hemoglobin 32.4 pg (26-34); Mean Corpuscular Volume 98.1 fl (80-100); Mean Platelet Volume 11.8 fl (7.4-10.4); Monocytes Absolute Auto 1.1 K/mm3 (0.1-0.6); Monocytes Percent Auto 12.4 % (2.6-8.5); Neutrophils Absolute Auto 4.1 K/mm3 (1.3-6.7); Neutrophils Percent Auto 48.1 % (45.5-73.1); Platelet Count Result 262 k/mm3 (150-375); Red Blood Count 5.34 M/mm3 (4.6-6.20); Red Cell Distribution Width 13.8 % (11.5-14.5); White Blood Count 8.5 K/mm3 (4.5-10.0)
[2023-02-24 19:44] LABS: Prostate Specific Antigen 0.5 ng/mL (< OR = 4.0)
[2023-02-27 14:27] LABS: Testosterone Free 62.5 pg/mL (35.0-155.0); Testosterone Total 443 ng/dL (250-1100)
== END 2023-02-24 08:15 | disposition home or self-care (01) ==
LOC: ANHGOSHLAB 08:16
PROVIDERS: PCP Internal Medicine; Visit Provider Internal Medicine
DX: E87.6 Hypokalemia (principal); E29.1 Testicular hypofunction; Z79.890 Hormone replacement therapy
CPT/HCPCS: 36415; 80053; 84153; 84402; 84403; 85025

== ENCOUNTER 2023-10-05 04:54 | Emergency (ER) | payer OTHER, SELFPAY ==
--- NOTE | ~2023-10-05 | CT_ITS ---
EXAMINATION: CT abdomen pelvis w con DATE: 10/05/2023 06:13 INDICATION: Abdomen pain for 2 days TECHNIQUE: Computed tomography (CT) of the abdomen and pelvis was performed with 100 cc Omnipaque 350 intravenous contrast. The dose-length product was 709.11 mGy-cm. Automated exposure control and iter ative reconstruction technique were employed. COMPARISON: None. FINDINGS: Lung bases are unremarkable. No significant pleural or pericardial effusion. Heart size is normal. There is a complicated septated right renal cyst measuring 4.1 cm. Heart size normal. The liver, spleen, pancreas, adrenal glands and left kidney are unremarkable. Gall bladder is present. Nonobstructive bowel gas pattern. Colonic diverticulosis without evidence for div erticulitis. No free air or free fluid. No lymphadenopathy. No significant vascular abnormality. Mode rate lumbar spondylosis. IMPRESSION: 1. Complicated septated right renal cyst at the lower pole measuring 4.1 cm. Correlation with MRI wit hout and with contrast recommended on a nonemergent basis to assess for abnormal enhancement. 2: No acute abdominal abnormality. Reviewed, dictated and finalized at location A. IMPRESSION: 1. Complicated septated right renal cyst at the lower pole measuring 4.1 cm. Co rrelation with MRI without and with contrast recommended on a nonemergent basis to assess for abnormal enhancement. 2: No acute abdominal abnormality.
[2023-10-05 04:57] VITALS: BP 144/76; PULSE 78; RESP 18; TEMP 36.7; O2SAT 99
--- NOTE | 2023-10-05 05:02 | ECG_ITS ---
SEE SCANNED COPY FOR CONFIRMED REPORT MTDD
[2023-10-05] MEDS: ONDANSETRON INJ 4 MG/2 ML VIAL IV PUSH (05:19)
[2023-10-05] MEDS: SODIUM CHLORIDE 0.9% IV 1,000 ML 999 ML IV CONT (05:19)
[2023-10-05] MEDS: MORPHINE SULFATE (*CRX) 4 MG/ML INJ IV PUSH ×2 (05:20→06:46)
[2023-10-05 05:24] VITALS: BP 116/93; PULSE 65; RESP 14; O2SAT 99
--- NOTE | 2023-10-05 05:27 | ED.GENADULT ---
HPI - General Adult General Chief complaint: Abdominal Pain Stated complaint: ABD pain Time Seen by Provider: 10/05/23 04:57 History of Present Illness HPI narrative: patient is a 62-year-old gentleman who presents emergency department with chief complaint abdominal pain. Patient reports that yesterday he started having fullness in his abdomen that radiated to his back patient reports he has been nauseated and has not had vomiting reports that he has had a small bowel movement and is not passing gas patient reports no prior surgical history of the abdomen denies fever denies chest pain or shortness of breath. Patient reports the pain is worse with movement and improves with rest Related Data Home Medications Medication Instructions Recorded Confirmed azelastine 137 mcg (0.1 %) nasal 1 spray intranasal DAILY 10/16/21 02/24/23 spray aerosol cetirizine 10 mg tablet 10 mg PO DAILY PRN 11/25/22 02/24/23 fluticasone propionate 50 2 spray intranasal BID 01/01/23 02/24/23 mcg/actuation nasal spray,suspension Allergies Allergy/AdvReac Type Severity Reaction Status Date / Time levofloxacin [From Levaquin] Allergy Severe Muscle Verified 02/24/23 07:26 detachment Dog Dander Allergy Intermediate SINUS Uncoded 02/24/23 07:26 Review of Systems Review of Systems: A 10 system review of systems was completed on the patient and is negative except for what is stated in the HPI. Nursing and ancillary documentation was reviewed. [facility] Past Medical History Medical History Anxiety Hypercholesteremia Hypogonadism in male Long-term current use of testosterone replacement therapy Neuropathy Surgical History Surgical History H/O esophagogastroduodenoscopy History of surgery on arm Left bicep reattachment 2013 History of tonsillectomy S/P colonoscopic polypectomy Family History Family History Sibling Patient's sister is in good health Father Acute myocardial infarction Sibling No problems noted. Mother Pancreatic cancer metastasized to intra-abdominal lymph node Social History Social History Social History: The patient lives with his and they have 3 children. 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 Patient is a former smoker. He does not use any marijuana or illicit drugs. The patient's is his durable power contract attorney for healthcare. Code status full code Smoking packs per day: 1 Smoking cigarettes per day: 20.0 Years smoked: 40 Smoking pack-years: 40.00 Smoking status: Former smoker Tobacco type: cigarettes Smoking end date: 06/16/00 Alcohol intake: never Alcohol use details: once a month Substance use: never Substance use type: does not use Lack of Transportation: No Lack of Food: Never True Current Housing: I Have Housing Concerned About Future Housing: No Difficulty Paying Gas/Electric Bills: No Difficulty Paying for Meds: No Currently Unemployed: Decline to Answer Education: Associate Degree Difficulty w/ Childcare or Family Care: No Living arrangements: with family Spiritual care concerns: No Exam Narrative: GENERAL: Well-appearing, well-nourished, and in no acute distress. HEAD: Normocephalic, atraumatic. EYES: PERRLA and EOMI. ENT: Nares clear, no rhinorrhea or epistaxis. Mucous membranes moist. NECK: Supple. CHEST: Clear to auscultation. No respiratory distress. HEART: Regular rate and rhythm. No murmur heard. Normal peripheral pulses. ABDOMEN: Soft, diffusely tender to palpation, nondistended, normal active bowel sounds. EXTREMITIES: Normal range of motion. No edema. SKIN: Warm, dry, no rash. NEURO: No focal deficits. Alert and oriented x3. P
[2023-10-05 05:39] LABS: Basophils Absolute Auto 0.1 K/mm3 (0.0-0.1); Basophils Percent Auto 0.7 % (0.2-1.2); Eosinophils Absolute Auto 0.3 K/mm3 (0-0.3); Eosinophils Percent Auto 2.8 % (0-4.4); Hematocrit 51.2 % (42.0-52.0); Immature Granulocyte Absolute 0.05 K/mm3 (0.00-0.031); Immature Granulocyte Percent A 0.4 % (0-0.5); Lymphocytes Absolute Auto 2.75 K/mm3 (0.9-3.2); Lymphocytes Percent Auto 23.3 % (18.3-44.2); Mean Corpuscular HGB Conc 33.2 g/dl (32-36); Mean Corpuscular Hemoglobin 32.3 pg (26-34); Mean Corpuscular Volume 97.2 fl (80-100); Mean Platelet Volume 11.2 fl (7.4-10.4); Monocytes Absolute Auto 0.9 K/mm3 (0.1-0.6); Monocytes Percent Auto 7.6 % (2.6-8.5); Neutrophils Absolute Auto 7.7 K/mm3 (1.3-6.7); Neutrophils Percent Auto 65.2 % (45.5-73.1); Platelet Count Result 279 k/mm3 (150-375); Red Blood Count 5.27 M/mm3 (4.6-6.20); White Blood Count 11.8 K/mm3 (4.5-10.0)
[2023-10-05 05:49] LABS: Prothrombin Time 14.2 Seconds (11.1-14.7)
[2023-10-05 05:50] LABS: Alanine Aminotransferase 23 U/L (6-50); Albumin Level 4.2 g/dL (3.5-5.1); Alkaline Phosphatase 62 U/L (38-126); Anion Gap 3 mmol/L (4-12); Aspartate Amino Transferase 31 U/L (17-59); Bilirubin,Total 0.5 mg/dL (0.2-1.3); Blood Urea Nitrogen 14 mg/dL (9-20); Calcium 9.5 mg/dL (8.4-10.2); Carbon Dioxide 31 mmol/L (22-30); Chloride 103 mmol/L (98-107); Estimated CRCL calculation 61 ml/min; Estimated Glomerular Filt Rate 56; Glucose 115 mg/dL (65-110); Lactic Acid Reflex 1.1 mmol/L (0.7-2.0); Lipase 59 U/L (23-300); Magnesium 2.2 mg/dL (1.6-2.3); Partial Thromboplastin Time 37.7 Seconds (22.3-36.8); Sodium 137 mmol/L (137-145)
[2023-10-05 06:01] LABS: Troponin I < 0.012 ng/mL (0.000-0.034)
[2023-10-05 06:43] LABS: Appearance Urine Clear (Clear); Bacteria Urine None Seen /hpf; Bilirubin Urine Negative (Negative); Blood Urine Trace (Negative); Color Urine Yellow (Yellow); Glucose Urine UA Negative (Negative); Ketones Urine Negative (Negative); Leukocyte Esterase Ur Negative LEU/UL (Negative); Nitrate Urine Negative (Negative); Non Pathogenic Casts 0-2; Protein Urine Negative (Negative); RBC Urine 0-2 /hpf (0-2); Specific Grav Ur 1.021 (1.001-1.035); Squamous Epithelial Cell Urine None Seen /hpf (Few); Urobilinogen Urine 0.2 mg/dL (<2.0); WBC Urine 0-5 /hpf (0-3)
[2023-10-05 06:46] LABS: Add Urine Microscopic? YES
[2023-10-05 07:03] VITALS: BP 137/82; PULSE 79; RESP 15; O2SAT 98
== END 2023-10-05 07:14 | disposition home or self-care (01) ==
PROVIDERS: Emergency Provider Emergency Medicine; PCP Internal Medicine
DX: R10.9 Unspecified abdominal pain (principal); E78.00 Pure hypercholesterolemia, unspecified; G62.9 Polyneuropathy, unspecified; Z86.010 Personal history of colon polyps; Z87.891 Personal history of nicotine dependence; N28.1 Cyst of kidney, acquired
CPT/HCPCS: 36415; 74177; 80053; 81001; 83605; 83690; 83735; 84484; 85025; 85610; 85730; 93005; 96361; 96374; 96375; 96376; 99284; J2270; J2405; J7030; Q9967

== ENCOUNTER 2023-10-05 23:16 | Emergency (ER) | payer OTHER, SELFPAY ==
[2023-10-05 23:17] VITALS: BP 151/72; PULSE 64; RESP 18; TEMP 36.4; O2SAT 97
--- NOTE | 2023-10-06 00:21 | ED.ABDPAIN ---
HPI - Abdominal Pain General Chief Complaint: Abdominal Pain Stated Complaint: back/abd pain, nausea Time Seen by Provider: 10/06/23 00:12 Source: patient Mode of arrival: ambulatory Limitations: no limitations History of Present Illness HPI narrative: This is a 62-year-old male with PMH of HLD, anxiety, pneumonia who presents to the ED for chief complaint of abdominal pain x3 days. Reports last bowel movement was over 3 days ago. Patient states he was here this morning with a full workup. States he was given medications for pain which helped today but pain worsened after he had ramen noodles tonight. Denies obstipation. Endorses intermittent nausea but no vomiting. Denies fevers, chills, urinary symptoms, chest pain, shortness of breath, cough. Related Data Home Medications Medication Instructions Recorded Confirmed azelastine 137 mcg (0.1 %) nasal 1 spray intranasal DAILY 10/16/21 02/24/23 spray aerosol cetirizine 10 mg tablet 10 mg PO DAILY PRN 11/25/22 02/24/23 fluticasone propionate 50 2 spray intranasal BID 01/01/23 02/24/23 mcg/actuation nasal spray,suspension Allergies Allergy/AdvReac Type Severity Reaction Status Date / Time levofloxacin [From Levaquin] Allergy Severe Muscle Verified 02/24/23 07:26 detachment Dog Dander Allergy Intermediate SINUS Uncoded 02/24/23 07:26 Review of Systems Review of Systems: All systems as dictated in HPI [facility] Past Medical History Medical History Anxiety Hypercholesteremia Hypogonadism in male Long-term current use of testosterone replacement therapy Neuropathy Surgical History Surgical History H/O esophagogastroduodenoscopy History of surgery on arm Left bicep reattachment 2012 History of tonsillectomy S/P colonoscopic polypectomy Family History Family History Sibling Patient's sister is in good health Father Acute myocardial infarction Sibling No problems noted. Mother Pancreatic cancer metastasized to intra-abdominal lymph node Social History Social History Social History: The patient lives with his and they have 3 children. 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 Patient is a former smoker. He does not use any marijuana or illicit drugs. The patient's is his durable power associate attorney for healthcare. Code status full code Smoking packs per day: 1 Smoking cigarettes per day: 20.0 Years smoked: 40 Smoking pack-years: 40.00 Smoking status: Former smoker Tobacco type: cigarettes Smoking end date: 06/16/00 Alcohol intake: never Alcohol use details: once a month Substance use: never Substance use type: does not use Lack of Transportation: No Lack of Food: Never True Current Housing: I Have Housing Concerned About Future Housing: No Difficulty Paying Gas/Electric Bills: No Difficulty Paying for Meds: No Currently Unemployed: Decline to Answer Education: Associate Degree Difficulty w/ Childcare or Family Care: No Living arrangements: with family Spiritual care concerns: No Exam Narrative: GENERAL: Well-appearing, well-nourished, and in no acute distress. HEAD: Normocephalic, atraumatic. EYES: PERRLA and EOMI. ENT: Nares clear, no rhinorrhea or epistaxis. Mucous membranes moist. Oropharynx without tonsillar hypertrophy exudate or other lesions. NECK: Supple. No adenopathy or masses. CHEST: No respiratory distress. Clear to auscultation. No wheezes rales or rhonchi HEART: Regular rate and rhythm. No murmur heard. Normal peripheral pulses. ABDOMEN: Soft, nontender, nondistended, normal active bowel sounds. Negative flank tenderness bilaterally MSK: Normal range of motion. No edema. SKIN: Warm
[2023-10-06 01:55] VITALS: BP 148/70; PULSE 69; RESP 16; O2SAT 100
== END 2023-10-06 01:57 | disposition home or self-care (01) ==
PROVIDERS: Emergency Provider Physician Assistant; PCP Internal Medicine
DX: K59.00 Constipation, unspecified (principal); E78.5 Hyperlipidemia, unspecified; G62.9 Polyneuropathy, unspecified; Z87.01 Personal history of pneumonia (recurrent); Z87.891 Personal history of nicotine dependence
CPT/HCPCS: 99283

== ENCOUNTER 2023-10-06 06:27 | Emergency (ER) | payer OTHER, SELFPAY ==
[2023-10-06] VITALS (9 sets, daily range): BP systolic 118–157; BP diastolic 63–105; PULSE 60–115; RESP 12–28; TEMP 36.4; O2SAT 92–99
--- NOTE | ~2023-10-06 | XR_ITS ---
EXAMINATION: XR abdomen/kub 1V DATE: 10/06/2023 07:49 INDICATION: Abdominal pain. Constipation. TECHNIQUE: A supine view of the abdomen on 2 radiographs was obtained. COMPARISON: CT abdomen and pelvis 10/05/2023 FINDINGS: There are no dilated loops of bowel. There is a small volume of stool in the colon. There a re phleboliths in the pelvis. IMPRESSION: 1. Normal bowel gas pattern. Reviewed, dictated and finalized at location E.
--- NOTE | ~2023-10-06 | CT_ITS ---
EXAMINATION: CT abdomen pelvis w con DATE: 10/06/2023 09:03 INDICATION: Left lower quadrant abdominal pain. TECHNIQUE: Computed tomography (CT) of the abdomen and pelvis was performed with 100 mL Omnipaque 350 intravenous contrast. Automated exposure control and iterative reconstruction technique were employe d. The dose-length product was 681.04 mGy-cm. COMPARISON: CT abdomen and pelvis 10/05/2023 FINDINGS: The visualized portions of the lung bases demonstrate mild atelectasis. There is a 6 mm nod ule in left lower lobe. No pleural effusion. The heart size is normal. No pericardial effusion. There is a small sliding hiatal hernia. The liver, spleen, gallbladder, pancreas, adrenal glands, and left kidney are normal. There is a 4.7 cm cystic mass in right kidney with numerous septa and thin calcif ications. One septum has a thickness of 5 mm. There is diverticulosis of the colon without evidence o f diverticulitis. There are no dilated loops of bowel. The appendix is normal. There are no pathologi narinder enlarged lymph nodes. There is no free intraperitoneal fluid. There is a right inguinal hernia containing fat. There is moderate lumbar spondylosis and mild thoracic spondylosis. IMPRESSION: 1. 4.7 cm cystic mass of right kidney, which may be benign or malignant. Abdomen CT or MRI without an d with contrast is recommended. 2. Small sliding hiatal hernia. Reviewed, dictated and finalized at location E. IMPRESSION: 1. 4.7 cm cystic mass of right kidney, which may be benign or malignant. Abdome n CT or MRI without and with contrast is recommended. 2. Small sliding hiatal hernia.
[2023-10-06] MEDS: SODIUM CHLORIDE 0.9% IV 1,000 ML 999 ML IV CONT (07:37)
[2023-10-06] MEDS: ONDANSETRON INJ 4 MG/2 ML VIAL IV PUSH (07:39)
[2023-10-06] MEDS: KETOROLAC 30 MG/ML VIAL (*BKC) IV PUSH (07:39)
[2023-10-06] MEDS: fentaNYL CITRATE INJ (*CRX) 100 MCG/2 ML VIAL 50 MCG IV PUSH (07:39)
[2023-10-06 07:48] LABS: Basophils Absolute Auto 0.1 K/mm3 (0.0-0.1); Basophils Percent Auto 0.7 % (0.2-1.2); Eosinophils Absolute Auto 0.3 K/mm3 (0-0.3); Eosinophils Percent Auto 2.2 % (0-4.4); Hematocrit 50.7 % (42.0-52.0); Immature Granulocyte Absolute 0.04 K/mm3 (0.00-0.031); Immature Granulocyte Percent A 0.3 % (0-0.5); Lymphocytes Percent Auto 21.3 % (18.3-44.2); Mean Corpuscular HGB Conc 33.5 g/dl (32-36); Mean Corpuscular Hemoglobin 32.1 pg (26-34); Mean Corpuscular Volume 95.7 fl (80-100); Mean Platelet Volume 11.2 fl (7.4-10.4); Monocytes Absolute Auto 0.8 K/mm3 (0.1-0.6); Monocytes Percent Auto 7.1 % (2.6-8.5); Neutrophils Percent Auto 68.4 % (45.5-73.1); Platelet Count Result 303 k/mm3 (150-375); Red Cell Distribution Width 14.5 % (11.5-14.5); White Blood Count 11.8 K/mm3 (4.5-10.0)
--- NOTE | 2023-10-06 07:50 | ED.ABDPAIN ---
HPI - Abdominal Pain General Chief Complaint: Abdominal Pain Stated Complaint: abdominal pain Time Seen by Provider: 10/06/23 07:14 History of Present Illness HPI narrative: POt presents with persistent LLQ abdominal pain. Pt seen here yeserday morning early and had full work up and got soap suds enema for constipation and felt better but abdominal pain recurred shortly after leaving and has persisted. Pt denies urinary symptoms. Pt is nauseated but not vomiting. Related Data Home Medications Medication Instructions Recorded Confirmed azelastine 137 mcg (0.1 %) nasal 1 spray intranasal DAILY 10/16/21 02/24/23 spray aerosol cetirizine 10 mg tablet 10 mg PO DAILY PRN 11/25/22 02/24/23 fluticasone propionate 50 2 spray intranasal BID 01/01/23 02/24/23 mcg/actuation nasal spray,suspension Allergies Allergy/AdvReac Type Severity Reaction Status Date / Time levofloxacin [From Levaquin] Allergy Severe Muscle Verified 10/06/23 07:15 detachment Dog Dander Allergy Intermediate SINUS Uncoded 10/06/23 07:15 Review of Systems Review of Systems: All systems reviewed & are unremarkable except as noted in HPI and below PMFSH Past Medical History Medical History Anxiety Hypercholesteremia Hypogonadism in male Long-term current use of testosterone replacement therapy Neuropathy Surgical History Surgical History H/O esophagogastroduodenoscopy History of surgery on arm Left bicep reattachment 2013 History of tonsillectomy S/P colonoscopic polypectomy Family History Family History Sibling Patient's sister is in good health Father Acute myocardial infarction Sibling No problems noted. Mother Pancreatic cancer metastasized to intra-abdominal lymph node Social History Social History Social History: The patient lives with his and they have 3 children. 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 Patient is a former smoker. He does not use any marijuana or illicit drugs. The patient's is his durable power sports attorney for healthcare. Code status full code Smoking packs per day: 1 Smoking cigarettes per day: 20.0 Years smoked: 40 Smoking pack-years: 40.00 Smoking status: Former smoker Tobacco type: cigarettes Smoking end date: 06/16/00 Alcohol intake: never Alcohol use details: once a month Substance use: never Substance use type: does not use Lack of Transportation: No Lack of Food: Never True Current Housing: I Have Housing Concerned About Future Housing: No Difficulty Paying Gas/Electric Bills: No Difficulty Paying for Meds: No Currently Unemployed: Decline to Answer Education: Associate Degree Difficulty w/ Childcare or Family Care: No Living arrangements: with family Spiritual care concerns: No Exam Const: General: healthy appearing and no acute distress Nutritional Appearance: well nourished Orientation/consciousness: patient oriented x3 Limitations: no limitations Resp: Effort & Inspection: normal respiratory effort Auscultation: clear to auscultation bilaterally Cardio: Rate: regular rate Rhythm: regular rhythm GI: GI Palp: Yes Soft to palpation and Yes Tenderness to palpation present (GI) (llq mild) Auscultation: normal bowel sounds : General: Yes bladder normal to palpation Back/Spine/Pelvis: Back: no CVA tenderness Skin: General skin exam: normal color Rashes: no rashes Wounds: no wounds Neuro: General: patient oriented x3, moves all extremities, no meningeal signs and no focal motor deficits Speech: normal speech Extrem: General: normal to inspection and no clubbing, cyanosis or edema Psych: Mental Status: mental status grossly normal [employer]
[2023-10-06 07:59] LABS: Alanine Aminotransferase 24 U/L (6-50); Albumin Level 4.4 g/dL (3.5-5.1); Alkaline Phosphatase 63 U/L (38-126); Anion Gap 5 mmol/L (4-12); Aspartate Amino Transferase 34 U/L (17-59); Bilirubin,Total 0.9 mg/dL (0.2-1.3); Blood Urea Nitrogen 10 mg/dL (9-20); Calcium 9.3 mg/dL (8.4-10.2); Carbon Dioxide 30 mmol/L (22-30); Chloride 103 mmol/L (98-107); Estimated CRCL calculation 61 ml/min; Estimated Glomerular Filt Rate 56; Glucose 114 mg/dL (65-110); Potassium 4.1 mmol/L (3.4-5.0); Sodium 138 mmol/L (137-145)
[2023-10-06] MEDS: MORPHINE SULFATE (*CRX) 4 MG/ML INJ IV PUSH (08:39)
--- NOTE | 2023-10-06 10:03 | PC.NURSE ---
Pt removed Bi=pap attempting get out of bed. Bipap applied, settings unchanged. Pt repositioned for comfort instructed for safety to remain in bed.
[2023-10-06 10:10] LABS: Appearance Urine Clear (Clear); Bacteria Urine None Seen /hpf; Bilirubin Urine Negative (Negative); Blood Urine 1+ (Negative); Color Urine Yellow (Yellow); Glucose Urine UA Negative (Negative); Ketones Urine 1+ mg/dL (Negative); Leukocyte Esterase Ur Negative LEU/UL (Negative); Nitrate Urine Negative (Negative); Non Pathogenic Casts 0-2; Protein Urine Negative (Negative); Squamous Epithelial Cell Urine None Seen /hpf (Few); Urobilinogen Urine 0.2 mg/dL (<2.0); WBC Urine 0-5 /hpf (0-3); pH Urine 6.5 (5.0-9.0)
[2023-10-06 10:21] LABS: Add Urine Microscopic? YES
== END 2023-10-06 10:53 | disposition home or self-care (01) ==
PROVIDERS: Emergency Provider Emergency Medicine; PCP Internal Medicine
DX: R10.32 Left lower quadrant pain (principal); E78.00 Pure hypercholesterolemia, unspecified; G62.9 Polyneuropathy, unspecified; Z87.891 Personal history of nicotine dependence; K44.9 Diaphragmatic hernia without obstruction or gangrene; N28.89 Other specified disorders of kidney and ureter
CPT/HCPCS: 36415; 74018; 74177; 80053; 81001; 85025; 96361; 96374; 96375; 99284; J1885; J2270; J2405; J3010; J7030; Q9967